=== PATIENT | female | born 1960 | race Caucasian/White ===

== ENCOUNTER → 2017-01-03 | Outpatient (CLI) | payer BC ==
[~2017-01-03] MED LIST: CHEWABLE ASPIRI81 MG PO; CLARITIN10 M3 PO; COLACE PO; DSS100 MG PO; DULCOLAX5 MG PO; FLAGYL PO; FLEXERIL PO; FLEXERIL10 MG PO; HYDROCHLOROTH12.5 MG PO; HYDROCODONE/APA1 T16 PO; LORTAB 5/500 TA1 TA1 PO; METOPROLOL TAR25 MG PO; PERCOCET5/325 PO; PROTONIX PO; SUPER B COMPLEX1 CAP PO; TOPROL XL PO
--- NOTE | ~2017-01-03 | MY29 ---
[facility] A Service of [facility] RADIOLOGY TEXT RESULTS PATIENT: ARMINDA CASITLLO LOCATION: [facility] : 58 UNIT #: [id number] AGE: [address]: Saeid Muñoz MD SEX: F ORDER DR: [id number] [facility] [address] [place], [place] [address] [id number] O MR#: [id number] Acc #: [id number] NAME: ARMINDA CASTILLO : 1960 SEX: F STUDY DATE/TIME: 01/03/2017 9:56 UNIT: [facility] ROOM: STUDY DESCRIPTION: MY HOLLY SCREENING W/ CAD BILAT Attending Physician: Saeid Muñoz Jr., M.D. Referring Physician: Saeid Muñoz Jr., M.D. Ordering Physician: Saeid Muñoz Jr., M.D. Primary Care Physician: Saeid Muñoz Jr., M.D. MEDICAL IMAGING REPORT This report is preliminary unless electronic signature is present EXAM Digital screening mammogram, 01/03/2017, [facility]. HISTORY 56-year-old woman; no risk elevation. Annual screening. COMPARISON 05/23/2012, 12/29/2013. FINDINGS Digital imaging of each breast was completed utilizing a two-view examination of each breast in craniocaudal and mediolateral-oblique projections. Review and interpretation of digital mammograms include a second review in conjunction with FDA-approved CAD device. There is a normal parenchymal presentation bilaterally consistent with the patient's age. There are no breast masses imaged and no parenchymal asymmetry is visualized. There are no suspicious microcalcifications and I see no focal architectural disturbance. NOTE: Breast parenchyma is fatty replaced IMPRESSION Negative screening digital mammogram. One-year followup recommended. Patients over the age of 40 are entered into a reminder system with target due date for the next mammogram. A result letter will also be sent to the patient. BIRADS: 1 Negative Dictated by... [facility] A Service [facility] RADIOLOGY TEXT RESULTS PATIENT: ARMINDA CASTILLO LOCATION: [facility] : 58 UNIT #: [id number] AGE: [address]: Saeid Muñoz MD SEX: F ORDER DR: Frederic Jones M.D. THIS IS AN ELECTRONICALLY VERIFIED REPORT Frederic Jones M.D. at 01/03/2017 1:03 PM ZAHRAA/esteban TD: 01/03/2017 11:51 JOB #: [id number] MEDICAL IMAGING REPORT Page 1 of 1 COPY
== END | disposition home or self-care (01) ==
LOC: CWCC 09:30
DX: Z12.31 Encounter for screening mammogram for malignant neoplasm of breast (principal)
CPT/HCPCS: G0202